=== PATIENT | female | born 1940 | race Caucasian/White ===

== ENCOUNTER 2017-10-24 09:57 | Outpatient (CLI) | payer MEDICARE, OTHER ==
--- NOTE | 2017-10-27 15:30 | DEXA Report ---
DEXA SCAN: 10/24/2017 HISTORY: Left breast cancer, osteoporosis. TECHNIQUE: Dual energy x-ray absorptiometry (DXA) was performed on a [employer] system. Regions measured are the AP spine, femoral neck, and, if needed, forearm. COMPARISON: 01/15/2016. In accordance with the International Society for Clinical Densitometry (ISCD) guidelines, data from previous exams may be reanalyzed using current recommendations and techniques. This is done to allow a more accurate basis for comparison with the current study. FINDINGS The data for the lumbar spine is as follows: REGION BMD (g/cm/cm) T-SCORE Z-SCORE L1 1.149 0.2 1.9 L2 1.141 -0.5 1.3 L3 1.060 -1.2 0.6 L4 0.974 -1.9 -0.1 L1-L4 1.073 -0.9 0.9 NOTE: All evaluable vertebrae are used for classification. The data for the hip is as follows: REGION BMD (g/cm/cm) T-SCORE Z-SCORE Neck 0.881 -1.1 0.9 TOTAL 0.831 -1.4 0.4 NOTE: The femoral neck or total proximal femur, whichever is lowest, is used for classification. DEXA RESULTS SUMMARY: Spine SCAN DATE AGE BMD T-SCORE BMD CHANGE VS BASELINE BMD CHANGE VS PREVIOUS 10/24/2017 [age] 1.073 -- 0.071* 7.1* 01/15/2016 75.5 1[age]002 -- -- -- * Denotes significant change at the 95% confidence level. Denotes dissimilar scan types or analysis methods. DEXA RESULTS SUMMARY: Total hip SCAN DATE AGE BMD T-SCORE BMD CHANGE VS BASELINE BMD CHANGE VS PREVIOUS 10/24/2017 77.2 0.831 -- -0.004 -0.5 01/15/2016 75.5 0[age]835 -- -- -- * Denotes significant change at the 95% confidence level. Denotes dissimilar scan types or analysis methods. IMPRESSION WHO CLASSIFICATION BASED ON THE INTERNATIONAL REFERENCE STANDARD IS OSTEOPENIA. FRACTURE RISK IS INCREASED. RECOMMENDATION: Patients with diagnosis of osteoporosis or osteopenia should have regular bone mineral density assessment. For those eligible for Medicare, routine testing is allowed once every 2 years. Testing frequency can be increased for patients who have rapidly progressing disease or for those who are receiving medical therapy to restore bone mass. COMMENT World Health Organization (WHO) definitions for osteoporosis and osteopenia: NORMAL BMD: T-score at 1.0 or higher, fracture risk is low. OSTEOPENIA BMD: T-score between 1.0 and -2.5, fracture risk is increased. OSTEOPOROSIS BMD: T-score at 2.5 or lower, fracture risk high. National Osteoporosis Foundation recommends: 1. Obtain adequate dietary calcium (at least 1200 mg per day) and vitamin D (400 -800 international units per day). 2. Participate, as appropriate, in regular weightbearing and muscle- strengthening exercise. 3. Avoid tobacco use and reduce alcohol and caffeine intake. 4. For more detailed information see the website at www.NOF.org. TD: 10/24/2017 16:40 MARIA E
== END 2017-10-24 09:58 | disposition home or self-care (01) ==
LOC: DI 09:57
PROVIDERS: ATTEND Internal Medicine Hematology & Oncology
DX: M81.0 Age-related osteoporosis without current pathological fracture (principal); M85.89 Other specified disorders of bone density and structure, multiple sites; C50.912 Malignant neoplasm of unspecified site of left female breast
CPT/HCPCS: 77080

== ENCOUNTER 2018-08-28 11:04 | Emergency (ER) | payer MEDICARE, OTHER ==
[2018-08-28] MEDS ORDERED: IOVERSOL 320 100 ML VIAL IVP ONE ×3 (11:05→17:02)
[2018-08-28 11:46] LABS: BASOPHILS % (AUTO) 0.3 %; EOSINOPHILS % (AUTO) 0.4 %; HGB - HEMOGLOBIN 13.3 g/dL (12.0-16.0); LYMPHOCYTES # (AUTO) 1.7 10^3/uL (1.5-3.5); LYMPHOCYTES % (AUTO) 14.5 %; MEAN CORPUSCULAR HEMOGLOBIN 28.9 pg (27.0-31.0); MEAN CORPUSCULAR HGB CONC 32.7 g/dL (32.0-36.0); MEAN CORPUSCULAR VOLUME 88.4 fL (81.0-99.0); MEAN PLATELET VOLUME 8.6 fL (7.9-10.8); MONOCYTES # (AUTO) 1.1 10^3/uL (0.0-1.0); MONOCYTES % (AUTO) 9.6 %; NEUTROPHILS # (AUTO) 8.8 10^3/uL (1.5-6.6); NEUTROPHILS % (AUTO) 75.2 %; PLT - PLATELET COUNT 197 10^3/uL (130-450); RED BLOOD COUNT 4.59 10^6/uL (4.20-5.40); RED CELL DISTRIBUTION WIDTH 14.1 % (12.0-15.0); WHITE BLOOD COUNT 11.7 x10^3/uL (4.8-10.8)
[2018-08-28 11:58] LABS: ALBUMIN 3.7 g/dL (3.2-5.5); BILIRUBIN,TOTAL 0.9 mg/dL (0.2-1.0); CALCIUM 9.1 mg/dL (8.5-10.3); CREATININE 1.2 mg/dL (0.4-1.0); TOTAL PROTEIN 7.3 g/dL (6.7-8.2)
--- NOTE | 2018-08-28 13:19 | ED Physician Documentation ---
PD HPI ABD PAIN - Stated complaint Stated Complaint: STOMACH ISSUES - Chief complaint Chief Complaint: Abd Pain - History obtained from History obtained from: Patient - History of Present Illness Timing - onset: Other (She has had 2 days of constant lower abdominal pain which is similar to 2 episodes of remote prior diverticulitis she has had in the past. No history of abdominal surgeries. She has had some mucousy rectal discharge with soft bowel movements. No fevers. She declines pain medication on initial evaluation.) Review of Systems Ten Systems: 10 systems reviewed and negative Constitutional: denies: Fever, Chills Cardiac: denies: Chest pain / pressure, Palpitations Respiratory: denies: Dyspnea, Cough GI: denies: Nausea, Vomiting, Hematemesis, Bloody / black stool PD PAST MEDICAL HISTORY - Past Medical History Cardiovascular: None Respiratory: None Endocrine/Autoimmune: None GI: Diverticulitis MANAGER COSMETIC: Breast cancer HEENT: None Psych: None Derm: None - Past Surgical History Past Surgical History: Yes HEENT: Cataracts - Present Medications Home Medications: Ambulatory Orders Medication Instructions Recorded Confirmed Ascorbic Acid [Vitamin C] 1,000 mg PO DAILY 06/11/13 08/28/18 Calcium Carbonate/Vitamin D3 1 each PO BID 06/11/13 08/28/18 [Calcium 600 + Vit D Caplet] Cholecalciferol (Vitamin D3) 2,000 unit PO DAILY 06/11/13 08/28/18 [Vitamin D-3] Docusate Sodium [Stool Softener] 50 mg PO TID PRN 06/11/13 08/28/18 Lactobacillus Combo No.6 1 each PO DAILY 06/11/13 08/28/18 [Probiotic Complex] Vitamin B Complex Vit C No.4 150 mg PO DAILY 06/11/13 08/28/18 [Super B Complex] Biotin/Calcium Carbonate [Biotin 0 mg ORAL DAILY 06/24/14 08/28/18 800 Mcg Tablet] Magnesium 0 mg PO DAILY 06/24/14 08/28/18 Multivit with Calcium,Iron,Min 1 each PO DAILY 06/24/14 08/28/18 [Multiple Vitamins For Women] Ciprofloxacin HCl [Cipro] 500 mg PO BID #20 tablet 08/28/18 Metronidazole [Flagyl] 500 mg PO TID #30 tablet 08/28/18 - Allergies Allergies/Adverse Reactions: Allergies Allergy/AdvReac Type Severity Reaction Status Date / Time iodine Allergy Severe Respiratory Verified 08/28/18 11:13 - Social History Does the pt smoke?: No Smoking Status: Never smoker Does the pt drink ETOH?: No Does the pt have substance abuse?: No - Immunizations Immunizations are current?: Yes PD ED PE NORMAL - Vitals Vital signs reviewed: Yes - General General: Alert and oriented X 3, No acute distress - Cardiac Cardiac: RRR, No murmur - Respiratory Respiratory: No respiratory distress, Clear bilaterally - Abdomen Abdomen: Soft, Other (Hyperactive bowel tones with right and left lower quadrant tenderness which seems equivalent without surgical signs.) - Back Back: No CVA TTP, No spinal TTP - Derm Derm: Normal color, Warm and dry - Extremities Extremities: No edema, No calf tenderness / cord - Neuro Neuro: Alert and oriented X 3, Normal speech Results - Vitals Vitals: Vital Signs - 24 hr 08/28/18 08/28/18 11:09 12:59 Temperature 36.8 C 36.8 C Heart Rate 86 74 Respiratory 14 15 Rate Blood Pressure 123/67 122/60 O2 Saturation 100 100 Oxygen O2 Source Room air - Labs Labs: Laboratory Tests 08/28/18 08/28/18 08/28/18 11:40 11:40 13:31 WBC 11.7 H RBC 4.59 Hgb 13.3 Hct 40.6 MCV 88.4 MCH 28.9 MCHC 32.7 RDW 14.1 Plt Count 197 MPV 8.6 Neut # (Auto) 8.8 H Lymph # (Auto) 1.7 Foard # (Auto) 1.1 H Eos # (Auto) 0.0 Baso # (Auto) 0.0 Absolute Nucleated RBC 0.00 Nucleated RBC % 0.0 Sodium 136 Potassium 3.8 Chloride 99 L Carbon Dioxide 28 Anion Gap 9.0 BUN 18 Creatinine 1.2 H Estimated GFR (MDRD) 43 L Glucose 93 Calcium 9.1 Total Bilirubin 0.9 AST 19 ALT 13 Alkaline Phosphatase 74 Total Protein 7.3 Albumin 3.7 Globulin 3.6 Albumin/Globulin Ratio 1.0 Lipase 23 Urine Color DARK YELLOW Urine Clarity CLEAR Urine pH 5.5 Ur Specific Vega 1.015 Urine Protein NEGATIVE Urine Glucose (UA) NEGATIVE Urine Ketones TRACE Urine Occult Blood SMALL H Urine Nitrite NEGATIVE Urine Bilirubin NEGATIVE Urine Urobilinogen 0.2 (NORMAL) Ur Leukocyte Esterase TRACE H Urine RBC 0-5 Urine WBC 6-10 H Ur Squamous Epith Cells RARE Squamous Urine Bacteria Few Ur Microscopic Review INDICATED Urine Culture Comments INDICATED - Rads (name of study) CT A/P Radiology: EMP read contemporaneously (Uncomplicated diverticulitis) PD MEDICAL DECISION MAKING - ED course ED course: 78-year-old woman with clinical diverticulitis, less likely appendicitis so CT was done to evaluate between 2 and diverticulitis was confirmed. She declined prescription pain medication. Departure - Departure Disposition: 01 Home, Self Care Clinical Impression: Diverticulitis of gastrointestinal tract Condition: Good Record reviewed to determine appropriate education?: Yes Instructions: ED Diverticulitis Prescriptions: Ciprofloxacin HCl [Cipro] 500 mg PO BID #20 tablet Metronidazole [Flagyl] 500 mg PO TID #30 tablet Comments: Return if worse, as discussed she will need a colonoscopy in about 8 weeks, discussed this with your doctor. Do not drink alcohol while taking the antibiotics.
[2018-08-28 14:01] LABS: GLUCOSE, URINE (UA) NEGATIVE (NEGATIVE); KETONES,URINE (UA) TRACE mg/dL (NEGATIVE); LEUKOCYTE ESTERASE, URINE TRACE (NEGATIVE); NITRITE,URINE NEGATIVE (NEGATIVE); OCCULT BLOOD,URINE SMALL (NEGATIVE); PH,URINE 5.5 PH (5.0-7.5); PROTEIN,URINE NEGATIVE (NEGATIVE); UROBILINOGEN,URINE 0.2 (NORMAL) E.U./dL (NORMAL)
[2018-08-28 14:04] LABS: CLARITY,URINE CLEAR (CLEAR)
[2018-08-28 14:12] LABS: BILIRUBIN,URINE NEGATIVE (NEGATIVE); ICTOTEST,URINE NEGATIVE; RBC,URINE 0-5 /HPF (0-5); SQUAMOUS EPITHELIAL CELL,UR RARE Squamous (<= Few)
[2018-08-28 14:13] LABS: BACTERIA,URINE Few /HPF (None Seen)
--- NOTE | 2018-08-28 14:39 | CT Report ---
Reason: IV only, low abd pain Procedure Date: 08/28/2018 Accession Number: [id number] / [id number] Procedure: CT - Abdomen/Pelvis W CPT Code: FULL RESULT: EXAM: CT ABDOMEN AND PELVIS WITH IV CONTRAST EXAM DATE: 08/28/2018 02:22 PM. CLINICAL HISTORY: IV only, low abdominal pain. COMPARISONS: IVP 03/13/2016 11:35 AM. TECHNIQUE: Routine helical CT imaging was performed through the abdomen and pelvis. IV contrast: Optiray 320, 80 mL. Enteric contrast: No. Reconstructions: Coronal and sagittal. In accordance with CT protocol optimization, one or more of the following dose reduction techniques were utilized for this exam: automated exposure control, adjustment of mA and/or KV based on patient size, or use of iterative reconstructive technique. FINDINGS: Lung Bases: Unremarkable. Liver: Hepatomegaly without mass. Gallbladder/Bile Ducts: Cholelithiasis without biliary ductal dilation or evidence of cholecystitis. Spleen: Normal. Pancreas: Normal. Adrenal Glands: Normal. Kidneys: Normal. No masses or hydronephrosis. Peritoneal Cavity/Bowel: There is no bowel obstruction, free air or free fluid. There is marked severe diverticulosis with focal fat stranding and bowel wall thickening in the distal sigmoid colon, image 41 series 5 and image 36 series 6 as well as image 62 of series 3. The appendix is well visualized and normal. Pelvic Organs: Normal. The bladder and visualized pelvic organs are within normal limits. Vasculature: Mild atherosclerotic disease without ethan aneurysm. Bones: Mild thoracolumbar scoliosis without aggressive osseous lesions or traumatic injury detected. Other: None. IMPRESSION: Uncomplicated distal sigmoid diverticulitis. [facility] CRITICAL RESULT: The findings were discussed with Dr. Lakhani on 08/28/2018 at 2:38 PM.
[2018-08-28 14:49] VITALS: BP 125/75
== END 2018-08-28 15:08 | disposition home or self-care (01) ==
LOC: ED 11:04
DX: K57.32 Diverticulitis of large intestine without perforation or abscess without bleeding (principal); Z85.3 Personal history of malignant neoplasm of breast
CPT/HCPCS: 36415; 74177; 80053; 81001; 83690; 85025; 87086; 99283; Q9967; 81003

== ENCOUNTER 2018-11-09 09:22 | Outpatient (CLI) | payer MEDICARE, OTHER ==
--- NOTE | 2018-11-09 10:45 | XRAY Report ---
Reason: ANKLE PAIN,LEFT Procedure Date: 11/09/2018 Accession Number: [id number] / [id number] Procedure: WCP - Ankle 3 View LT CPT Code: FULL RESULT: EXAMS: LEFT FOOT AND ANKLE RADIOGRAPHY EXAM DATE: 11/09/2018 09:45 AM. CLINICAL HISTORY: Ankle pain, left. COMPARISON: None.. TECHNIQUE: 3 views each foot and ankle. FINDINGS: Bones: There is moderate inferior calcaneal spurring. No fractures or bone lesions in the foot or ankle. Joints: Normal. No effusions. No subluxations in the foot or ankle. The ankle mortise is normally aligned. Soft Tissues: There is marked soft tissue swelling about the ankle, greater laterally. IMPRESSION: Significant soft tissue swelling in the ankle region without fracture or dislocation detected. Inferior calcaneal spurring. RADIA
== END 2018-11-09 09:23 | disposition home or self-care (01) ==
LOC: DI.WCP 09:22
PROVIDERS: ATTEND Family Medicine
DX: M25.572 Pain in left ankle and joints of left foot (principal); M77.32 Calcaneal spur, left foot

== ENCOUNTER 2018-11-09 09:24 | Outpatient (CLI) | payer MEDICARE, OTHER ==
--- NOTE | 2018-11-09 10:45 | XRAY Report ---
Reason: FOOT PAIN,LEFT Procedure Date: 11/09/2018 Accession Number: [id number] / [id number] Procedure: WCP - Foot 3 View LT CPT Code: FULL RESULT: EXAMS: LEFT FOOT AND ANKLE RADIOGRAPHY EXAM DATE: 11/09/2018 09:45 AM. CLINICAL HISTORY: Ankle pain, left. COMPARISON: None.. TECHNIQUE: 3 views each foot and ankle. FINDINGS: Bones: There is moderate inferior calcaneal spurring. No fractures or bone lesions in the foot or ankle. Joints: Normal. No effusions. No subluxations in the foot or ankle. The ankle mortise is normally aligned. Soft Tissues: There is marked soft tissue swelling about the ankle, greater laterally. IMPRESSION: Significant soft tissue swelling in the ankle region without fracture or dislocation detected. Inferior calcaneal spurring. RAD[facility]
== END 2018-11-09 09:25 | disposition home or self-care (01) ==
LOC: DI.WCP 09:24
PROVIDERS: ATTEND Family Medicine
DX: M77.32 Calcaneal spur, left foot (principal); M25.572 Pain in left ankle and joints of left foot; M25.472 Effusion, left ankle

== ENCOUNTER 2021-08-14 17:07 | Outpatient (CLI) | payer MEDICARE, OTHER ==
[2021-08-14] MEDS ORDERED: IOVERSOL 320 100 ML VIAL IVP ONE (17:23)
[2021-08-14] MEDS ORDERED: IOVERSOL 320 50 ML VIAL ONE (17:23)
[2021-08-14 17:49] LABS: ALBUMIN 3.9 g/dL (3.2-5.5); ALBUMIN/GLOBULIN RATIO 1.1 (1.0-2.2); BILIRUBIN,TOTAL 0.3 mg/dL (0.2-1.0); CALCIUM 9.2 mg/dL (8.5-10.3); POTASSIUM 3.8 mmol/L (3.5-5.0); TOTAL PROTEIN 7.3 g/dL (6.7-8.2)
--- NOTE | 2021-08-14 18:51 | CT Report ---
PROCEDURE: Abdomen/Pelvis W INDICATIONS: ABD PAIN, LEFT LOWER QUADRENT CONTRAST: IV CONTRAST: Optiray 320 ml: 100 PO CONTRAST: Optiray 320 ml50 TECHNIQUE: After the administration of IV and oral contrast, 5 mm thick sections acquired from the diaphragms to the symphysis. 5 mm thick coronal and sagittal reformats were acquired. For radiation dose reducti on, the following was used: automated exposure control, adjustment of mA and/or kV according to betzy ent size. COMPARISON: 08/28/2018. FINDINGS: Image quality: Excellent. ABDOMEN: Lung bases: Left basilar atelectasis is seen posteriorly. Heart size is normal. Solid organs: Liver and spleen are normal in size and enhancement. Hyperdensity in dependent portion of gallbladder lumen is seen suggestive of small gallstone. No gallbladder wall thickening or perich olecystic fluid. Biliary system is non dilated. Pancreas enhances normally. No adrenal nodules. Ki dneys demonstrate normal size and enhancement, without hydronephrosis. Peritoneum and bowel: There is a small hiatal hernia. No bowel obstruction. No gastric or small bowel wall thickening. Sigmoid diverticulosis is seen. There is wall thickening and pericolonic fat strand ing involving distal sigmoid colon best seen on series 3 image 57. No signs of perforation or discret e drainable abscess collection. No free fluid of free air. Nodes and vessels: No retroperitoneal or mesenteric adenopathy by size criteria. Aorta and inferior vena cava are normal in size. Miscellaneous: No ventral hernias. PELVIS: Genitourinary: Bladder wall thickness is normal. Miscellaneous: No inguinal hernias or adenopathy. Bones: No suspicious bony lesions. No vertebral body compression fractures. Degenerative disc dise ase throughout lower thoracic and lumbar spine is seen. IMPRESSION: 1. Finding is suggestive of acute diverticulitis involving distal sigmoid colon in left lower quadran t. No abscess collection. No signs of perforation. 2. Cholelithiasis without CT evidence of acute cholecystitis. 3. Small hiatal hernia. Reviewed by: Charlie Berkowitz MD on 08/14/2021 6:50 PM PDT Approved by: Charlie Berkowitz MD on 08/14/2021 6:50 PM PDT Station ID: [id number]
[2021-08-14] MEDS: IOVERSOL 320 100 ML VIAL IVP ONE (19:08)
[2021-08-14] MEDS: IOVERSOL 320 50 ML VIAL PO ONE (19:09)
== END 2021-08-14 17:08 | disposition home or self-care (01) ==
LOC: DI 17:07
PROVIDERS: ATTEND Physician Assistant
DX: K80.20 Calculus of gallbladder without cholecystitis without obstruction (principal); K44.9 Diaphragmatic hernia without obstruction or gangrene; K57.30 Diverticulosis of large intestine without perforation or abscess without bleeding; R10.32 Left lower quadrant pain
CPT/HCPCS: 36415; 74177; 80053; Q9967

== ENCOUNTER 2021-08-17 07:00 | Outpatient (CLI) | payer MEDICARE, OTHER ==
[2021-08-17 16:04] LABS: FECAL OCCULT BLOOD (FIT) NEGATIVE (NEGATIVE)
== END 2021-08-17 23:59 | disposition home or self-care (01) ==
LOC: LAB.N 07:00
PROVIDERS: ATTEND Physician Assistant
DX: R10.32 Left lower quadrant pain (principal)
CPT/HCPCS: 82274

== ENCOUNTER 2022-09-23 16:57 | Outpatient (CLI) | payer MEDICARE, OTHER ==
--- NOTE | 2022-09-24 14:59 | XRAY Report ---
PROCEDURE: Knee 4 View LT INDICATIONS: KNEE PAIN ACUTE TECHNIQUE: 4 views of the left knee(s) were acquired. COMPARISON: None. FINDINGS: Bones: No fractures or dislocations. No suspicious bony lesions. There is mild to moderate tricom partmental arthritic change most severe medially. No erosions. Minimal osteophytes. Soft tissues: No knee joint effusion. No suspicious soft tissue calcifications or masses. IMPRESSION: Tricompartmental arthritic change. Reviewed by: Ann Forde MD on 09/24/2022 2:58 PM PDT Approved by: Ann Forde MD on 09/24/2022 2:58 PM PDT Station ID: [id number]
== END 2022-09-23 16:58 | disposition home or self-care (01) ==
LOC: DI 16:57
PROVIDERS: ATTEND Nurse Practitioner
DX: M17.12 Unilateral primary osteoarthritis, left knee (principal)

== ENCOUNTER 2022-09-28 11:50 | Outpatient (CLI) | payer MEDICARE, OTHER ==
--- NOTE | 2022-09-28 16:47 | XRAY Report ---
PROCEDURE: Ankle 3 View LT INDICATIONS: ANKLE JOINT PX, LT TECHNIQUE: 3 views of the ankle were acquired. COMPARISON: 11/09/2018 plain films FINDINGS: Bones: No fractures or dislocations. Ankle mortise is normally aligned. No suspicious bony lesions . Soft tissues: No tibiotalar joint effusion. Achilles tendon appears normal. IMPRESSION: No acute fracture. No osseous lesion. If symptoms and/or clinical suspicion for pathology continue, f urther assessment with repeat plain films, or advanced imaging (e.g., CT, MRI, or bone scan) is recom mended for further assessment. Reviewed by: Ari Zarate MD on 09/28/2022 4:45 PM PDT Approved by: Ari Zarate MD on 09/28/2022 4:45 PM PDT Station ID: [id number]
== END 2022-09-28 11:51 | disposition home or self-care (01) ==
LOC: DI 11:50
PROVIDERS: ATTEND Nurse Practitioner
DX: M25.572 Pain in left ankle and joints of left foot (principal)